=== PATIENT | male | born 1975 | race Caucasian/White ===

== ENCOUNTER 2021-01-05 03:20 | Inpatient (IN) ==
[2021-01-05] MEDS ORDERED: HEPARIN 5,000 UNIT/1 ML VIAL ONE ×2 (03:27→04:02)
[2021-01-05] MEDS ORDERED: LIDOCAINE 1% 20 ML VIAL ONE (03:39)
[2021-01-05] MEDS ORDERED: NITROGLYCERIN DRIP 50 MG/250 ML BOTTLE IV ONE (03:39)
[2021-01-05] MEDS ORDERED: VERAPAMIL 5 MG/2 ML VIAL ONE (03:39)
[2021-01-05] MEDS ORDERED: HEPARIN/NACL 0.9% 2 UNITS/ML 1,000 ML IV ONE (03:39)
[2021-01-05] MEDS ORDERED: MIDAZOLAM 2 MG/2 ML VIAL ONE ×2 (03:49→03:55)
[2021-01-05] MEDS ORDERED: fentaNYL 100 MCG/2 ML VIAL ONE (03:50)
[2021-01-05] MEDS ORDERED: TIROFIBAN 5,000 MCG/100 ML PREMIX IV ONE (04:01)
[2021-01-05] MEDS ORDERED: HEPARIN 5,000 UNIT/1 ML VIAL IV STA (04:06)
[2021-01-05] MEDS ORDERED: HYDROmorphone 2 MG/1 ML VIAL ONE (04:14)
[2021-01-05] MEDS ORDERED: HEPARIN/NACL 0.9% 2 UNITS/ML 500 ML IV ONE (04:40)
[2021-01-05] MEDS ORDERED: TICAGRELOR 90 MG TABLET ONE (05:04)
[2021-01-05] MEDS ORDERED: NITROGLYCERIN SL 0.4 MG TABLET SL PRN (05:11)
[2021-01-05] MEDS ORDERED: hydrALAZINE 20 MG/1 ML VIAL IV PRN (05:14)
[2021-01-05 05:29] LABS: Risk Ratio 7.55
[2021-01-05] MEDS ORDERED: SODIUM CHLORIDE 0.9% 1,000 ML IV SCH (05:30)
[2021-01-05] MEDS ORDERED: FUROSEMIDE 40 MG/4 ML VIAL IV SCH (09:00)
[2021-01-05] MEDS: ASPIRIN EC 81 MG TABLET PO SCH (09:16)
[2021-01-05] MEDS: PANTOPRAZOLE 40 MG TABLET PO SCH (09:16)
[2021-01-05] MEDS: LOSARTAN 25 MG TABLET PO SCH (09:16)
[2021-01-05] MEDS: FAMOTIDINE 20 MG TABLET PO SCH ×2 (09:16→21:05)
[2021-01-05] MEDS: carvediloL 3.125 MG TABLET PO SCH ×2 (09:16→17:45)
[2021-01-05] MEDS: TICAGRELOR 90 MG TABLET PO SCH ×2 (09:17→21:05)
[2021-01-05] MEDS: HYDROmorphone 2 MG/1 ML VIAL IV PRN ×2 (09:26→17:36)
[2021-01-05] MEDS: ONDANSETRON 4 MG/2 ML VIAL IV PRN ×3 (09:26→22:30)
[2021-01-05 13:08] LABS: Albumin 3.4 G/DL (3.4-5.0); Bilirubin,Total 0.5 MG/DL (0.2-1.0); Calcium 8.2 MG/DL (8.5-10.1); Potassium 2.9 MMOL/L (3.5-5.1); Total Protein 6.9 G/DL (6.4-8.3)
[2021-01-05 13:11] LABS: Basophils % 0.3 % (0.0-0.8); Eosinophils # 0.1 10*3/uL (0.0-0.87); Eosinophils % 0.8 % (0.00-10.9); Hematocrit 45.1 VOL% (42.0-52.0); Hemoglobin 15.8 GM/DL (14.0-18.0); Immature Granulocytes % 0.5 %; Immature Granulocytes Absolute 0.07 #; Lymphocytes # 3.1 10*3/uL (1.4-4.0); Lymphocytes % 20.4 % (21.2-54.2); Mean Corpuscular Volume 88.1 FL (87-102); Mean Platelet Volume 10.9 FL (9.6-12.0); Monocytes % 10.2 % (1.7-12.7); Neutrophils % 67.8 % (38.7-73.9); Platelet Count 211 T/CUMM (130-400); Red Blood Count 5.12 MC/CUMM (3.8-5.5); Red Cell Distribution Width 13.6 % (9.3-17.3); White Blood Count 15.3 T/CUMM (4-12)
[2021-01-05] MEDS ORDERED: POTASSIUM CHLORIDE 20 MEQ TABLET PO ONE (13:19)
[2021-01-05] MEDS: ROSUVASTATIN 20 MG TABLET PO SCH (21:05)
[2021-01-05] MEDS: ACETAMINOPHEN 325 MG TABLET PO PRN (21:19)
[2021-01-06] MEDS ORDERED: diphenhydrAMINE CAP 25 MG CAPSULE PO ONE (03:46)
[2021-01-06 04:40] LABS: Basophils % 0.3 % (0.0-0.8); Eosinophils # 0.1 10*3/uL (0.0-0.87); Hematocrit 40.8 VOL% (42.0-52.0); Hemoglobin 14.3 GM/DL (14.0-18.0); Immature Granulocytes % 0.3 %; Immature Granulocytes Absolute 0.04 #; Lymphocytes # 2.7 10*3/uL (1.4-4.0); Lymphocytes % 23.3 % (21.2-54.2); Mean Corpuscular Volume 89.5 FL (87-102); Mean Platelet Volume 11.4 FL (9.6-12.0); Neutrophils % 66.1 % (38.7-73.9); Platelet Count 165 T/CUMM (130-400); Red Blood Count 4.56 MC/CUMM (3.8-5.5); Red Cell Distribution Width 13.9 % (9.3-17.3); White Blood Count 11.5 T/CUMM (4-12)
[2021-01-06 05:09] LABS: Calcium 8.7 MG/DL (8.5-10.1); Osmolality,Calculated 262.5 MOS/KG (273-304); Potassium 2.9 MMOL/L (3.5-5.1)
[2021-01-06] MEDS ORDERED: POTASSIUM CHLORIDE 20 MEQ TABLET PO ONE ×4 (06:07→13:00)
[2021-01-06] MEDS: SPIRONOLACTONE 25 MG TABLET PO SCH (08:24)
[2021-01-06] MEDS: ASPIRIN EC 81 MG TABLET PO SCH (08:24)
[2021-01-06] MEDS: ONDANSETRON 4 MG/2 ML VIAL IV PRN (08:24)
[2021-01-06] MEDS: TICAGRELOR 90 MG TABLET PO SCH ×2 (08:24→20:30)
[2021-01-06] MEDS: PANTOPRAZOLE 40 MG TABLET PO SCH (08:24)
[2021-01-06] MEDS: FAMOTIDINE 20 MG TABLET PO SCH ×2 (08:24→20:30)
[2021-01-06] MEDS: LOSARTAN 25 MG TABLET PO SCH (08:25)
[2021-01-06] MEDS: carvediloL 3.125 MG TABLET PO SCH ×2 (08:25→16:13)
[2021-01-06] MEDS: POTASSIUM CHLORIDE 20 MEQ TABLET PO SCH ×2 (08:29→20:30)
[2021-01-06] MEDS: MAGNESIUM OXIDE 400 MG TABLET PO SCH ×2 (08:29→20:30)
[2021-01-06] MEDS ORDERED: POTASSIUM CHLORIDE 20 MEQ TABLET PO SCH (13:00)
[2021-01-06] MEDS ORDERED: SIMETHICONE CHEW 125 MG TABLET PO PRN (16:03)
[2021-01-06] MEDS ORDERED: BISMUTH SUBSALICYLATE 30 ML/524 MG 240 ML/BOTTLE PO PRN (16:04)
[2021-01-06] MEDS: ACETAMINOPHEN 325 MG TABLET PO PRN (16:14)
[2021-01-06] MEDS: ROSUVASTATIN 20 MG TABLET PO SCH (20:30)
[2021-01-07 04:25] LABS: Basophils % 0.2 % (0.0-0.8); Eosinophils # 0.1 10*3/uL (0.0-0.87); Eosinophils % 0.8 % (0.00-10.9); Hematocrit 41.7 VOL% (42.0-52.0); Hemoglobin 14.7 GM/DL (14.0-18.0); Immature Granulocytes % 0.3 %; Immature Granulocytes Absolute 0.04 #; Lymphocytes # 2.5 10*3/uL (1.4-4.0); Lymphocytes % 19.9 % (21.2-54.2); Mean Corpuscular HGB Conc 35.3 GM/DL (32-36); Mean Corpuscular Volume 88.9 FL (87-102); Mean Platelet Volume 11.3 FL (9.6-12.0); Monocytes % 13.4 % (1.7-12.7); Neutrophils % 65.4 % (38.7-73.9); Platelet Count 160 T/CUMM (130-400); Red Blood Count 4.69 MC/CUMM (3.8-5.5); Red Cell Distribution Width 13.9 % (9.3-17.3); White Blood Count 12.3 T/CUMM (4-12)
[2021-01-07 05:10] LABS: Calcium 8.8 MG/DL (8.5-10.1); Osmolality,Calculated 271.8 MOS/KG (273-304); Potassium 3.6 MMOL/L (3.5-5.1)
[2021-01-07] MEDS: MAGNESIUM OXIDE 400 MG TABLET PO SCH (08:16)
[2021-01-07] MEDS: TICAGRELOR 90 MG TABLET PO SCH (08:16)
[2021-01-07] MEDS: PANTOPRAZOLE 40 MG TABLET PO SCH (08:16)
[2021-01-07] MEDS: ASPIRIN EC 81 MG TABLET PO SCH (08:16)
[2021-01-07] MEDS: SPIRONOLACTONE 25 MG TABLET PO SCH (08:17)
[2021-01-07] MEDS: carvediloL 3.125 MG TABLET PO SCH (08:17)
[2021-01-07] MEDS: LOSARTAN 25 MG TABLET PO SCH (08:17)
[2021-01-07] MEDS: POTASSIUM CHLORIDE 20 MEQ TABLET PO SCH (08:17)
[2021-01-07] MEDS: FAMOTIDINE 20 MG TABLET PO SCH (08:17)
[2021-01-07 12:59] VITALS: BP 109/80
== END 2021-01-07 14:50 | disposition home or self-care (01) | DRG 247 ==
LOC: EDUNIT# → EDBD → N.ED 03:20 → N.EDINP 04:00 → N.CVR 05:45 → N.ICU 19:32
PROVIDERS: ADMIT Internal Medicine Cardiovascular Disease; ATTEND Internal Medicine Cardiovascular Disease
PROC: CLCCHCL (ICD-10-PCS; 2021-01-05 04:15)